=== PATIENT | female | born 1985 | race Hispanic/Latino ===

== ENCOUNTER 2020-11-16 20:06 | Emergency (ER) | payer MEDICAID ==
[~2020-11-16] VITALS: Ht 165.1 cm; Wt 59.0 kg
[2020-11-16 20:07] VITALS: BP 159/60
[2020-11-16] MEDS ORDERED: DIPHENHYDRAMINE HCL 25 MG CAPSULE PO ONE (20:30)
[2020-11-16] MEDS ORDERED: CLINDAMYCIN 150 MG CAP PO ONE (20:30)
[2020-11-16] MEDS ORDERED: CLIN300C10 PO (20:35)
[2020-11-16] MEDS ORDERED: DIPH25 PO (20:35)
== END 2020-11-16 21:50 | disposition home or self-care (01) ==
LOC: EDH 20:06
DX: L03.114 Cellulitis of left upper limb (principal)
CPT/HCPCS: 99283; Q0163

== ENCOUNTER 2020-11-29 09:24 | Emergency (ER) | payer MEDICAID ==
[~2020-11-29] VITALS: Ht 165.1 cm; Wt 63.5 kg
[~2020-11-29 09:24] MED LIST: CLIN300C10 PO; DIPH25 PO
[2020-11-29 09:47] VITALS: BP 144/95
[2020-11-29] MEDS ORDERED: NEOMY SULF/BACITRA/POLYMYXIN B 1 EACH PACKET TP ONE ×2 (10:21→10:30)
== END 2020-11-29 10:29 | disposition home or self-care (01) ==
LOC: EDH 09:24
DX: R22.32 Localized swelling, mass and lump, left upper limb (principal); E11.40 Type 2 diabetes mellitus with diabetic neuropathy, unspecified; E78.00 Pure hypercholesterolemia, unspecified; I10 Essential (primary) hypertension; Z88.0 Allergy status to penicillin; Z88.1 Allergy status to other antibiotic agents; Z79.899 Other long term (current) drug therapy; Z98.890 Other specified postprocedural states